=== PATIENT | female | born 1940 | race Hispanic/Latino ===

== ENCOUNTER 2018-06-24 22:47 | Emergency (ER) | payer MEDICARE ==
[~2018-06-24 22:47] MED LIST: AMIODARONE HCL 50 MG/ML 3 ML VIAL IV ONE; CALCIUM CHLORIDE 100 MG/ML 10 ML SYG IVP ONE; DEXTROSE 50%-WATER 50 ML DISP.SYRIN IV ONE; EPINEPHRINE 0.1 MG/ML 10 ML SYG IVP ONE; MAGNESIUM SULFATE 1 GM/2 ML VIAL IM ONE; SODIUM BICARB 8.4% 50ML SYRINGE IVP ONE
[2018-06-24] MEDS ORDERED: AMIODARONE HCL 50 MG/ML 3 ML VIAL ONE (22:53)
[2018-06-24 23:18] LABS: ABG BASE EXCESS -20.2 mmol/L (-2.0-3.0); ABG HCO3 13.1 mmol/L (21.0-28.0); ABG OXYGEN SATURATION 32.4 % (95.0-99.0); ABG PCO2 96 mmHg (32-45)
[2018-06-24] MEDS ORDERED: EPINEPHRINE 0.1 MG/ML 10 ML SYG ONE (23:18)
[2018-06-24] MEDS ORDERED: SODIUM BICARB 50MEQ 50ML VIAL ONE (23:19)
[2018-06-25 00:02] LABS: ALANINE AMINOTRANSFERASE 594 U/L (12-78); BILIRUBIN,TOTAL 0.5 mg/dL (0.2-1.0); CARBON DIOXIDE 16 mmol/L (21-32); CHLORIDE 114 mmol/L (101-111); CREATINE KINASE MB 0.6 ng/mL (0.5-3.6); CREATINE KINASE, TOTAL 180 U/L (21-232); CREATININE 1.6 mg/dL (0.5-1.5); GLOMERULAR FILTR. RATE CALC 33 mL/min (>60); GLUCOSE,RANDOM 102 mg/dL (70-105); POTASSIUM 3.3 mmol/L (3.5-5.1); SODIUM SERUM 155 mmol/L (136-145); UREA NITROGEN, BLOOD 58 mg/dL (7-18)
[2018-06-25 00:04] LABS: ALBUMIN < 0.6 g/dL (3.5-5.0); TOTAL PROTEIN, SERUM < 2.0 g/dL (6.0-8.3)
[2018-06-25 00:06] LABS: BASOPHILS % (AUTO) 0.3 % (0.0-5.0); EOSINOPHILS % (AUTO) 2.1 % (0.0-8.0); LYMPHOCYTES % (AUTO) 59.3 % (21.0-51.0); MEAN CORPUSCULAR HEMOGLOBIN 29.3 pg (27.0-33.0); MEAN CORPUSCULAR HGB CONC 32.6 g/dL (32.0-36.0); NEUTROPHILS % (AUTO) 37.3 % (40.0-77.0); NUCLEATED RED BLOOD CELLS 0.4 % (0.0-0.19); PLATELET COUNT (AUTO) 62 K/uL (130-400); RED BLOOD CELL COUNT(AUTO) 1.87 MIL/uL (4.00-5.50); RED CELL DISTRIBUTION WIDTH 13.3 % (11.0-15.5); WHITE BLOOD COUNT (AUTO) 7.4 K/uL (4.8-10.8)
[2018-06-25 00:08] LABS: ASPARTATE AMINOTRANSFERASE 1307 U/L (10-37); HEMATOCRIT 16.9 % (36-48)
== END 2018-06-24 23:23 | disposition expired ==
LOC: EDH 22:47
DX: I46.9 Cardiac arrest, cause unspecified (principal); E11.9 Type 2 diabetes mellitus without complications; I10 Essential (primary) hypertension; M19.90 Unspecified osteoarthritis, unspecified site
CPT/HCPCS: 36415; 36600; 71045; 80053; 82330; 82435; 82550; 82553; 82803; 82947; 83605; 84132; 84295; 84484; 85018; 85025; 86850; 86900; 86901; 92950; 93005; 99285; J0171; J0282 ×2; J3475; J3490 ×2; J7070; 94002